=== PATIENT | male | born 1960 | race Hispanic/Latino ===

== ENCOUNTER → 2021-02-13 | Outpatient (CLI) | payer SELFPAY | LOC: RAD 10:45 | PROVIDERS: ATTEND Internal Medicine | DX: M47.812 Spondylosis without myelopathy or radiculopathy, cervical region (principal) | CPT/HCPCS: 72050 ==

== ENCOUNTER → 2024-03-15 | Outpatient (REF) | payer OTHER | LOC: RAD 11:24 | PROVIDERS: ATTEND Internal Medicine | DX: M19.071 Primary osteoarthritis, right ankle and foot (principal) ==